=== PATIENT | male | born 1995 | race Hispanic/Latino ===

== ENCOUNTER 2019-07-22 03:56 | Emergency (ER) | payer OTHER ==
[2019-07-22] MEDS ORDERED: LEVETIRACETAM 500 MG/5 ML SD VIAL IV ONE (04:02)
== END 2019-07-22 05:12 | disposition home or self-care (01) ==
LOC: EDH 03:56
DX: G40.909 Epilepsy, unspecified, not intractable, without status epilepticus (principal); Z72.0 Tobacco use
CPT/HCPCS: 82948; 96374; 99284; J1953

== ENCOUNTER 2020-07-25 19:27 | Emergency (ER) | payer OTHER | END 2020-07-25 20:21 | disposition home or self-care (01) | LOC: EDH 19:27 | DX: Z02.89 Encounter for other administrative examinations (principal); Z72.0 Tobacco use ==